=== PATIENT | female | born 1965 | race Caucasian/White ===

== ENCOUNTER 2019-11-01 06:55 | Day surgery (SDC) | payer OTHER ==
[~2019-11-01] VITALS: Ht 165.1 cm; Wt 70.3 kg
[~2019-11-01 06:55] MED LIST: AMITRIPTYLINE H25 MG PO; CITALOPRAM HBR10 MG PO; CLINDAMYCIN HC300 MG PO; DILTIAZEM HCL120 MG PO; DIVALPROEX SOD500 MG PO; ISOSORBIDE MONO30 MG PO; ISOSORBIDE MONO60 MG PO; LEVOTHYROXINE50 MCG PO; LIPITOR10 MG PO; NITROGLYCERIN0.4 MG SL; OXYBUTYNIN CHLOR5 MG PO; POLYSPORIN OI28.3 GM TOP; PREDNISONE20 MG PO; PROVENTIL HFA6.7 GM INH; TRAZODONE HCL50 MG PO; VITAMIN D32000 UNIT PO
--- NOTE | 2019-11-01 10:15 | NUR ---
11/01/19 1015 Marvin Pagan 1002: PT ARRIVED TO PACU. PT DROWSY BUT AWAKE AND SHE STATES SHE IS COMFORTABLE AND QUICKLY FELL TO SLEEP. PT MAINTAINING HER OWN AIRWAY WHILE SLEEPING. SEE ASSESSMENT.
--- NOTE | 2019-11-01 10:18 | NUR ---
IV IN THE RIGHT WRIST, NOT THE FOOT LISTED.
--- NOTE | 2019-11-01 13:36 | OR ---
[facility] [address] [place], [place] [address] Signed DATE OF OPERATION: 11/01/2019 SURGEON: Esthela De La Fuente MD PREOPERATIVE DIAGNOSIS: Right parietal scalp cyst x2. POSTOPERATIVE DIAGNOSIS: Right parietal scalp cyst x2. PROCEDURE PERFORMED: Excision of right parietal scalp cyst x2. ESTIMATED BLOOD LOSS: Minimal. INDICATIONS: Tariq is a 54-year-old female who has actually had several cysts on her scalp over the years. We took two scalp cyst off back in 2017. While living in [place], she doctor tried to remove the cyst off her scalp while in the office. She said it was a horrible experience. It bled everywhere and of course the cyst recurred. We had to remove that cyst and another one as well. She understands that if the entire cyst wall is not removed, they do recur. The scalp was very well vascularized in the often bleeds and makes it difficult to see the cyst wall and therefore we like to do these in the operating room with needle-tip cautery and excellent lighting and help from our OR nurse to ensure when the entire cyst is removed. She did quite well with monitored anesthesia care and local anesthetic previously. 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 She understands that they can recur in the same or other locations. There is a risk to the surgery including, but not limited to bleeding, infection, scarring, change in contour of the skin. She had expressed understanding and wished to proceed. PROCEDURE NOTE: I met with Tariq, her and her [id number] on her day surgery area. After reviewing this with them, we took Tariq into our operating room placed in a supine position with appropriate padding and monitoring. She was given monitored anesthesia care by our nurse blender laborer. She was given preoperative antibiotics along with subcutaneous heparin. SCDs were utilized. Tariq and I have easily identified both lesions. They have been marked in our preop area. We were able to pull her hair off to the sides and just used our scissors to clip a few hairs directly over each of the cyst. Each area was prepped and draped in the usual sterile fashion. Local anesthetic was Electronically Signed By: ESTHELA DE LA FUENTE MD 11/01/19 1336 PATIENT NAME: TARIQ LOMELI OPERATIVE REPORT DATE OF : 69 REPORT #: [id number] PHYSICIAN: ESTHELA DE LA FUENTE MD PCP: CLARK ELIZALDE REPORT IS CONFIDENTIAL AND NOT TO BE RELEASED WITHOUT AUTHORIZATION [facility] [address] [place] [id number] Signed injected around and underneath each lesion. A linear incision was made over each cyst with the help of the needle-tip cautery. The entire cyst and cyst wall were extracted with the help of hemostats. Each incision was closed with two interrupted 4-0 nylon sutures. The incisions were left open to air. After this, Tariq was transferred to her hospital bed and taken into recovery room in stable condition. Esthela De La Fuente MD ALB/MODL /[id number] cc: MD Robbie Oropeza MD Chloe K Norris, PA-C Copies: ESTHELA DE LA FUENTE MD, MERSHED MD NORRIS, CHLOE K PA-C ~ Electronically Signed By: ESTHELA DE LA FUENTE MD 11/01/19 1336 PATIENT NAME: TARIQ LOMELI OPERATIVE REPORT DATE OF : 69 REPORT #: [id number] PHYSICIAN: ESTHELA DE LA FUENTE MD PCP: CLARK ELIZALDE REPORT IS CONFIDENTIAL AND NOT TO BE RELEASED WITHOUT AUTHORIZATION
--- NOTE | 2019-11-05 12:08 | PATH ---
[facility] [address] [place], [place] [address] Signed SPECIMEN(S): A RIGHT SCALP SPECIMEN SOURCE: A. RIGHT SCALP CLINICAL HISTORY: Right scalp pilar cyst x 2. FINAL PATHOLOGIC DIAGNOSIS: Cysts, right scalp, excision: - Pilar (trichilemmal) cysts. NAL:caw:C2NR MICROSCOPIC EXAMINATION: Histologic sections of all submitted blocks are examined by light microscopy. These findings, together with the gross examination, support the pathologic diagnosis. GROSS DESCRIPTION: The specimen, labeled "JM, scalp cyst 2 on the requisition," is received in formalin and consists of two firm marti-white cysts that measure 0.5 x 0.4 x 0.3 cm and 0.9 x 0.8 x 0.7 cm. The contents are firm marti-white. The smaller pieces bisected and the larger piece is trisected. The specimen is entirely submitted in cassette A1. SS (under the direct supervision of a pathologist) The Gross Description was prepared using a voice recognition system. The report was reviewed for accuracy; however, sound-alike word errors, addition and/or deletions may occur. If there is any question about this report, please contact Client Services. PERFORMING LABORATORY: The technical component was performed by [facility], [address] [place] [id number] (Tassel Maker: Kendra Noonan MD; CLIA# [id number]). [facility], [address] [address] (Tassel Maker: Yuriy Richards MD; CLIA# [id number]). Diagnostician: Pita Boston MD Pathologist Electronically Signed 11/05/2019 PATIENT NAME: TARIQ LOMELI PATHOLOGY DATE OF : 69 REPORT #: [id number] PHYSICIAN: [facility] PCP: CLARK ELIZALDE REPORT IS CONFIDENTIAL AND NOT TO BE RELEASED WITHOUT AUTHORIZATION [address] [address] Signed Copies: ~ PATIENT NAME: TARIQ LOMELI PATHOLOGY DATE OF : 69 REPORT #: [id number] PHYSICIAN: [facility]Y PATHOLOG[facility] PCP: CLARK ELIZALDE REPORT IS CONFIDENTIAL AND NOT TO BE RELEASED WITHOUT AUTHORIZATION
== END 2019-11-01 11:05 | disposition home or self-care (01) ==
LOC: DS 06:55
PROVIDERS: Colon & Rectal Surgery
PROC: 0HB0XZZ Excision of Scalp Skin, External Approach (ICD-10-PCS; principal; 2019-11-01 08:15)
DX: L72.11 Pilar cyst (principal); G47.00 Insomnia, unspecified; E03.9 Hypothyroidism, unspecified; I25.2 Old myocardial infarction; F32.9 Major depressive disorder, single episode, unspecified; F41.9 Anxiety disorder, unspecified; I10 Essential (primary) hypertension; Z88.0 Allergy status to penicillin; Z91.041 Radiographic dye allergy status; Z91.013 Allergy to seafood; Z88.8 Allergy status to other drugs, medicaments and biological substances; Z98.890 Other specified postprocedural states
CPT/HCPCS: 00300; J0690; J1100; J1644; J1885; J2405; J2704; J3010; J7121

== ENCOUNTER 2022-07-15 07:40 | Day surgery (SDC) | payer OTHER ==
[~2022-07-15] VITALS: Ht 165.1 cm; Wt 65.9 kg
[~2022-07-15 07:40] MED LIST changes: +NITROMIST4.1 GM; +VENTOLIN HFA18 GM INH
--- NOTE | 2022-07-15 09:48 | NUR ---
PT ALERT, ORIENTED AND SUPPORTED BY HER SONI AND MOTHER IN [place]. SONI INFORMED ME THAT HE HAD HIS MOTHER COME BECAUSE HE..."JUST CAN'T DO HOSPITALS AND IT'S BETTER IF FHE LEAVE". GAVE ENCOURAGEMENT, WILL FOLLOW
--- NOTE | 2022-07-15 10:33 | NUR ---
07/15/22 1033 Jennifer Diego 1031 PATIENT ARRIVES TO PACU AWAKE OFF/ON BUT VERY DROWSY. RESP EVEN AND UNLABORED, OXYGEN MASK AT 6 LITERS, TURNED OFF ON ARRIVAL. PATIENT DENIES PAIN OR NAUSEA.
--- NOTE | 2022-07-15 13:20 | OR ---
[facility] [address] [place], [place] [address] Signed DATE OF OPERATION: 07/15/2022 SURGEON: Esthela De La Fuente MD PREOPERATIVE DIAGNOSIS: Right anterior parietal scalp pilar cyst (5-7 mm). POSTOPERATIVE DIAGNOSIS: Right anterior parietal scalp pilar cyst (4 mm) PROCEDURE: Excision of pilar cyst. ESTIMATED BLOOD LOSS: None. FINDINGS: Tariq indeed had scar from a prior I and D site on the medial side of this cyst. The actual cyst and cyst wall were about 4 mm in diameter. INDICATIONS: Tariq is a 57-year-old female who has come to us previously for pilar cyst on her scalp. Over the years, she has had various providers try to help her. 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 Of course, the scarring makes it much more difficult. She is describing what she felt was a new pilar cyst in the right anterior parietal scalp. It was probably 5 or 7 mm in diameter on palpation. Today we discovered she has a surgical scar in the medial side of that. We even had difficulty placing our hypodermic needle through that area to inject the local anesthetic. It made it much more difficult to remove. In addition, she came through rather severe COVID back in 2020. She has been to both her vamp wetter and her photo checker and assembler. Overall, she is much improved. Her primary care provider had asked her to come see me with respect to the above. In the office, she and I could easily locate this pilar cyst. Once again, we do these in the operating room under excellent lighting with suction and needle tip cautery, particularly when they have had scarring previously. These are day surgeries. There is risk including, but not limited to bleeding, infection, scarring, change in contour of the skin as well as recurrent pilar cyst in the same or other locations. She had expressed understanding and wished to proceed. DESCRIPTION OF PROCEDURE: Electronically Signed By: ESTHELA DE LA FUENTE MD 07/15/22 1320 PATIENT NAME: TARIQ LOMELI OPERATIVE REPORT DATE OF : 69 REPORT #: [id number] PHYSICIAN: ESTHELA DE LA FUENTE MD PCP: MANOLO TARANGO PA-C REPORT IS CONFIDENTIAL AND NOT TO BE RELEASED WITHOUT AUTHORIZATION [facility] [address] [place] [id number] Signed I met with Tariq and her [id number] in our preop area. We all agreed on the location and marked that appropriately. That was consistent with our history and physical. After this, she was taken to the operating room and placed in the supine position under monitored anesthesia care. She was prepped and draped in the usual sterile fashion. Once the hair was trimmed a bit, we could see the scar on the medial side of this pilar cyst. In fact, we had difficulty passing our hypodermic needle through the scar. After injecting local anesthetic, we made an anterior to posterior incision with a 15 blade knife just lateral to the scar. It was very difficult getting down and around the cyst wall. We went very carefully and slowly with our needle-tip cautery and the hemostat. They were so much scarred that we finally opened the top of the cyst wall and evacuated the very indurated 3 mm ball of sebum. That allowed us to work our way lateral to medial towards the scar. Then, she will be having the entire cyst wall removed. The wound had been irrigated until clean. We injected some additional local anesthetic. We then used interrupted simple 2-0 nylon sutures to bring the incision back together. There was no ointment or dressing applied. She was then transferred over to the hospital bed and taken into the recovery room in stable condition. Tariq had tolerated the procedure quite well. Esthela De La Fuente MD ALB/MODL /[id number] cc: FLORIN Lugo MD Copies: MANOLO TARANGO PA-C, ANDREW L MD ~ Electronically Signed By: ESTHELA DE LA FUENTE MD 07/15/22 1320 PATIENT NAME: TARIQ LOMELI OPERATIVE REPORT DATE OF : 69 REPORT #: [id number] PHYSICIAN: ESTHELA DE LA FUENTE MD PCP: MANOLO TARANGO PA-C REPORT IS CONFIDENTIAL AND NOT TO BE RELEASED WITHOUT AUTHORIZATION
== END 2022-07-15 11:20 | disposition home or self-care (01) ==
LOC: DS 07:40
PROVIDERS: ATTEND Colon & Rectal Surgery
PROC: 0HB0XZZ Excision of Scalp Skin, External Approach (ICD-10-PCS; principal; 2022-07-15 09:00)
DX: L72.11 Pilar cyst (principal); I10 Essential (primary) hypertension; E03.9 Hypothyroidism, unspecified; E55.9 Vitamin D deficiency, unspecified; I25.10 Atherosclerotic heart disease of native coronary artery without angina pectoris; Z79.899 Other long term (current) drug therapy
CPT/HCPCS: 00300; J0690; J1644; J1885; J2001; J2405; J2704; J3010; J7121

== ENCOUNTER 2022-08-09 20:37 | Emergency (ER) | payer OTHER ==
[~2022-08-09] VITALS: Ht 165.1 cm; Wt 65.8 kg
[2022-08-09] MEDS ORDERED: ULTRAM50 MG PO (21:24)
== END 2022-08-09 22:06 | disposition home or self-care (01) ==
LOC: ED 20:37
DX: S83.92XA Sprain of unspecified site of left knee, initial encounter (principal); I10 Essential (primary) hypertension; W22.8XXA Striking against or struck by other objects, initial encounter; Z91.013 Allergy to seafood; Z91.018 Allergy to other foods; Z88.0 Allergy status to penicillin; Z88.8 Allergy status to other drugs, medicaments and biological substances; Z88.2 Allergy status to sulfonamides; Z79.899 Other long term (current) drug therapy; Z79.890 Hormone replacement therapy
CPT/HCPCS: 73560; A9270; J1885

== ENCOUNTER 2024-09-21 16:39 | Emergency (ER) | payer OTHER, BC ==
[~2024-09-21] VITALS: Ht 165.1 cm; Wt 78.0 kg
[~2024-09-21 16:39] MED LIST changes: +ULTRAM50 MG PO
[2024-09-21] MEDS ORDERED: ondansetron HCL 4 MG/2 ML VIAL IV ONE ×2 (17:00→17:15)
[2024-09-21 17:08] LABS: BASOPHILS 0.9 % (0-2); EOSINOPHILS 1.2 % (0-6); HEMATOCRIT 40.2 % (35.0-50.0); HEMOGLOBIN 13.8 g/dL (12.0-18.0); LYMPHOCYTES 15.6 % (24-44); MCH 30.7 (27-36); MCHC 34.4 g/dl (30-36); MCV 89.4 fl (81-99); MONOCYTES 11.7 % (0-12); NEUTROPHILS 70.6 % (39-80); PLATELET COUNT 163 K/uL (140-440); RDW 13.7 (10.5-15.0)
[2024-09-21] MEDS ORDERED: HYDROmorphone HCL 1 MG/ML SYR IV ONE (17:15)
[2024-09-21] MEDS ORDERED: SODIUM CHLORIDE 0.9% 1,000 ML IV PRN (17:15)
[2024-09-21 17:21] LABS: ALBUMIN 3.8 g/dL (3.4-5.0); ALBUMIN/GLOBULIN RATIO 1.06 (1.1-2.4); ANION GAP 14.6 (7-21); BILIRUBIN, TOTAL 0.4 ng/dL (0.2-1.0); BUN/CREATININE RATIO 10.77 (6.0-28.6); CALCIUM 8.7 mg/dL (8.5-10.1); CREATININE, SERUM 1.67 mg/dL (0.55-1.02); POTASSIUM 3.6 mmol/L (3.5-5.1); PROTEIN, TOTAL 7.4 g/dL (6.4-8.2)
[2024-09-21 17:31] LABS: BILIRUBIN, URINE NEGATIVE (negative); BLOOD/HGB, URINE SMALL (Negative); KETONE, URINE NEGATIVE (Negative); LEUK ESTERASE, URINE NEGATIVE (negative); NITRITE, URINE NEGATIVE (negative)
[2024-09-21 17:37] LABS: EPITHELIAL CELLS, URINE SQUAMOUS 1+ /lpf (0-1+)
[2024-09-21 17:38] LABS: RED BLOOD CELLS, URINE 21-40 /hpf (0-5)
[2024-09-21 17:39] LABS: BACTERIA, URINE RARE /hpf (negative); CASTS, URINE NONE SEEN \\lpf; COLLECTION TYPE, URINE CLEAN CATCH; CRYSTALS, URINE NONE SEEN (0-1+)
[2024-09-21 17:40] LABS: REFLEX CULTURE, URINE Yes (No)
[2024-09-21] MEDS ORDERED: OXYCODONE/APAP 5/325 TAB PO ONE (19:45)
[2024-09-21] MEDS ORDERED: KETOROLAC TROMETHAMINE 15 MG/ML VIAL IV ONE (19:45)
[2024-09-21] MEDS ORDERED: PERCOCET 5-3251 EACH PO (20:13)
[2024-09-21] MEDS ORDERED: OXYCODONE/ACETAMINOPHEN 1 TAB HOME.PACK PO ONE (20:15)
[2024-09-21 20:34] VITALS: BP 139/77
[2024-09-25] MEDS ORDERED: BACTRIM DS TAB1 EACH PO (17:52)
[2024-09-25] MEDS ORDERED: FLOMAX0.4 MG PO (17:52)
[2024-09-25] MEDS ORDERED: PREDNISONE20 MG PO (17:53)
[2024-09-26] MEDS ORDERED: LEVOFLOXACIN500 MG PO (12:31)
== END 2024-09-21 20:34 | disposition home or self-care (01) ==
LOC: ED 16:39
PROVIDERS: Emergency Medicine
DX: N13.2 Hydronephrosis with renal and ureteral calculous obstruction (principal); K80.20 Calculus of gallbladder without cholecystitis without obstruction; K59.00 Constipation, unspecified; I25.2 Old myocardial infarction; I10 Essential (primary) hypertension; Z91.013 Allergy to seafood; Z88.2 Allergy status to sulfonamides; Z88.8 Allergy status to other drugs, medicaments and biological substances; Z91.018 Allergy to other foods; Z79.899 Other long term (current) drug therapy; Z79.890 Hormone replacement therapy
CPT/HCPCS: 36415; 74176; 80053; 81001; 83690; 85025; 87088; 96374; 96375; 99284-25; J1171; J1885; J2405; J7030

== ENCOUNTER 2024-10-02 06:02 | Day surgery (SDC) | payer OTHER, BC ==
[~2024-10-02] VITALS: Ht 165.1 cm; Wt 75.0 kg
[~2024-10-02 06:02] MED LIST changes: +BACTRIM DS TAB1 EACH PO; +FLOMAX0.4 MG PO; +LACTATED RINGER'S 1,000 ML IV SCH; +LEVOFLOXACIN500 MG PO; +PERCOCET 5-3251 EACH PO
[2024-10-02 06:12] VITALS: BP 126/64
[2024-10-02] MEDS ORDERED: iopamidoL 30 ML VIAL ONE (06:39)
[2024-10-02] MEDS ORDERED: LIDOCAINE HCL 1% 5 ML SDV INJ ONE (07:00)
[2024-10-02] MEDS ORDERED: CEFAZOLIN SODIUM 2 GM/20 ML SYR IV SCH (07:00)
[2024-10-02] MEDS ORDERED: IBLOOD GLUCOSE TEST STRIP 1 EA TEST VI PRN ×2 (07:00→08:30)
[2024-10-02] MEDS ORDERED: fentaNYL citrate 100 MCG/2 ML VIAL ONE (07:21)
[2024-10-02] MEDS ORDERED: propofoL 200 MG/20 ML VIAL ONE (07:25)
[2024-10-02] MEDS ORDERED: ACETAMINOPHEN 1,000 MG/100 ML VIAL ONE (07:25)
[2024-10-02] MEDS ORDERED: LIDOCAINE HCL 2% 5 ML SDV ONE (07:25)
[2024-10-02] MEDS ORDERED: ondansetron HCL 4 MG/2 ML VIAL ONE (07:25)
[2024-10-02] MEDS ORDERED: DEXAMETHASONE SOD PHOS 4 MG/ML VIAL ONE (07:25)
[2024-10-02] MEDS ORDERED: dexmedeTOMIDine HCl 200 MCG/2 ML VIAL ONE (07:25)
[2024-10-02] MEDS ORDERED: MAGNESIUM SULFATE 1 GM/2 ML VIAL ONE (07:25)
[2024-10-02] MEDS ORDERED: OXYCODONE/APAP 5/325 TAB PO PRN (07:30)
[2024-10-02] MEDS ORDERED: KETOROLAC TROMETHAMINE 15 MG/ML VIAL IV PRN (07:30)
[2024-10-02] MEDS ORDERED: HYDROmorphone HCL 1 MG/ML SYR IV PRN (07:30)
[2024-10-02] MEDS ORDERED: ondansetron HCL 4 MG/2 ML VIAL IV PRN ×2 (07:30→08:30)
[2024-10-02] MEDS ORDERED: PHENAZOPYRIDINE HCL 100 MG TAB PO PRN (07:45)
[2024-10-02] MEDS ORDERED: GLYCOPYRROLATE 1 MG/5 ML MDV ONE (07:55)
[2024-10-02] MEDS ORDERED: ePHEDrine sulfate 50 MG/ML AMP ONE (07:55)
[2024-10-02] MEDS ORDERED: fentaNYL citrate 50 MCG/ML SDV IV PRN (08:30)
[2024-10-02] MEDS ORDERED: NALOXONE HCL 0.4 MG SYR IV PRN (08:30)
[2024-10-02] MEDS ORDERED: KETOROLAC TROMETHAMINE 30 MG/ML VIAL IV PRN (08:30)
[2024-10-02] MEDS ORDERED: TRANEXAMIC ACID 1,000 MG/10 ML AMP ONE ×2 (08:59→09:00)
--- NOTE | 2024-10-02 09:30 | NUR ---
10/02/24 0930 Aarti Dick 0912- PT ARRIVES TO THE PACU WITH A NATURAL AIRWAY. PT IS TALKING AND LOOKING AROUND THE PACU. PT IS ORIENTED TO THE PACU. PT DENIES PAIN AND NAUSEA. NO DRAINAGE NOTED AT THE URETHRA AND ELVIA PAD PUT IN PLACE. IV INFUSING IN THE LEFT FOREARM. ABDOMEN IS SOFT AND NONDISTENDED. ALL MONITORS PUT IN PLACE AND VSS. 0923- MD AT BEDSIDE TALKING WITH PT. ALL QUESTIONS ANSWERED AND NO CONCERNS. 0928- PT HOB INCREASED AND PT SIPPING ON WATER AND TOLERATING WELL. PT REPORTS HER THROAT FEELS "RAW", AND NEEDING TO URINATE. PT EDUCATED ON PROCEDURE.
[2024-10-02 09:46] VITALS: BP 113/75
--- NOTE | 2024-10-02 09:47 | NUR ---
LE 0945: PT IS BACK TO DS FROM PACU. SHE IS AT HER BASELINE. IS AT THE BEDSIDE. CALL LIGHT WITHIN REACH. WATER, PUDDING, AND CRACKERSON BEDSIDE TABLE. SHE IS TOLERATING WATER. NO ADDITIONAL NEEDS AT THIS TIME. DC CRITERIA REVIEWED WITH PT AND .
[2024-10-02] MEDS ORDERED: SEVOFLURANE 250 ML BTL INH ONE (10:02)
[2024-10-02 10:54] VITALS: BP 113/64
--- NOTE | 2024-10-02 10:54 | NUR ---
PT VOIDED 600 ML OF URINE.
--- NOTE | 2024-10-02 11:00 | NUR ---
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 SRT ASSISTS HER TO THE BATHROOM. LE 1055: PT HAS MET ROSIE MERAZ. SHE INDICATES THAT SHE WOULD LIKE TO GO HOME AT THIS TIME. SHE IS EDUCATED ON HOW TO DRESS HERSELF AND TO OPEN HER CURTAIN WHEN SHE IS READY.
--- NOTE | 2024-10-02 11:14 | NUR ---
LE 1109: PT IS GIVEN WRITTEN AND VERBAL DC INSTRUCTIONS. SHE VERBALIZES UNDERSTANDING. QUESTIONS ARE ASKED AND ANSWERED. LE 1110: PT IS TAKEN TO PERSONAL VEHICLE VIA WC.
[2024-10-04 15:55] LABS: CALCULI MASS 270 mg (())
== END 2024-10-02 11:14 | disposition home or self-care (01) ==
LOC: DS 06:02
PROVIDERS: ATTEND Urology
PROC: 0TC68ZZ Extirpation of Matter from Right Ureter, Via Natural or Artificial Opening Endoscopic (ICD-10-PCS; principal; 2024-10-02 07:30)
PROC: 0T768DZ Dilation of Right Ureter with Intraluminal Device, Via Natural or Artificial Opening Endoscopic (ICD-10-PCS; 2024-10-02 07:30)
DX: N20.1 Calculus of ureter (principal); I10 Essential (primary) hypertension; I25.10 Atherosclerotic heart disease of native coronary artery without angina pectoris; I25.2 Old myocardial infarction; E03.9 Hypothyroidism, unspecified; N32.81 Overactive bladder; Z79.890 Hormone replacement therapy; Z79.899 Other long term (current) drug therapy; Z88.0 Allergy status to penicillin; Z88.2 Allergy status to sulfonamides; Z88.8 Allergy status to other drugs, medicaments and biological substances; Z91.013 Allergy to seafood; Z91.018 Allergy to other foods; Z89.021 Acquired absence of right finger(s)
CPT/HCPCS: 00910; 74420; 82365; C1769; C2617; J0131; J0690; J1100; J2003; J2405; J2704; J3010; J3475; J7121; Q9967

== ENCOUNTER 2025-03-03 07:55 | Day surgery (SDC) | payer BC, OTHER ==
[2025-02-27 16:08] VITALS: BP 162/70
[~2025-03-03] VITALS: Ht 165.1 cm; Wt 67.3 kg
[~2025-03-03 07:55] MED LIST changes: +ATORVASTATIN CA20 MG PO; +CEFAZOLIN SODIUM 2 GM/20 ML SYR IV SCH; +CELEXA10 MG PO; +DILTIAZEM 24HR120 MG PO; +HYDROXYZINE HCL25 MG PO; +IBLOOD GLUCOSE TEST STRIP 1 EA TEST VI PRN; +LIDOCAINE HCL 1% 30 ML SDV ONE; +LIDOCAINE HCL 1% 5 ML SDV INJ ONE; +SOLIFENACIN SUC10 MG PO; +VESICARE10 MG PO; +VITAMIN D21250 MCG PO
[2025-03-03 08:04] VITALS: BP 131/78
[2025-03-03] MEDS ORDERED: OXYCODONE/APAP 5/325 TAB PO PRN (08:15)
[2025-03-03] MEDS ORDERED: MORPHINE SULFATE 4 MG/ML VIAL IV PRN (08:15)
[2025-03-03] MEDS ORDERED: ondansetron HCL 4 MG/2 ML VIAL IV PRN ×2 (08:15→11:30)
[2025-03-03] MEDS ORDERED: propofoL 200 MG/20 ML VIAL ONE (10:50)
[2025-03-03] MEDS ORDERED: LIDOCAINE HCL 2% 5 ML SDV ONE (10:50)
[2025-03-03] MEDS ORDERED: KETOROLAC TROMETHAMINE 30 MG/ML VIAL ONE (10:50)
[2025-03-03] MEDS ORDERED: NALOXONE HCL 0.4 MG SYR IV PRN (11:30)
[2025-03-03] MEDS ORDERED: fentaNYL citrate 50 MCG/ML SDV IV PRN (11:30)
--- NOTE | 2025-03-03 11:48 | NUR ---
03/03/25 1148 Alison Zambrano PATIENT OPENS HER EYES, SPONTANEOUSLY. SHE DENIES PAIN. GLASSES ARE GIVEN AND SHE REPLACES THEM ONTO HER PERSON. SHE FOLLOWS INSTRUCTIONS TO LIFT HER HEAD OFF HER PILLOW. OXGYEN REMAINS 100% ON 6L VIA MASK. OXYGEN AND SURGICAL BONNET ARE REMOVED.
[2025-03-03 12:00] VITALS: BP 102/60
== END 2025-03-03 12:17 | disposition home or self-care (01) ==
LOC: DS 07:55
PROVIDERS: ATTEND Urology
PROC: 3E0K8GC Introduction of Other Therapeutic Substance into Genitourinary Tract, Via Natural or Artificial Opening Endoscopic (ICD-10-PCS; principal; 2025-03-03 10:00)
DX: N36.42 Intrinsic sphincter deficiency (ISD) (principal); N39.3 Stress incontinence (female) (male); I10 Essential (primary) hypertension; E03.9 Hypothyroidism, unspecified; Z79.899 Other long term (current) drug therapy; Z88.0 Allergy status to penicillin; Z88.2 Allergy status to sulfonamides; Z88.5 Allergy status to narcotic agent; Z88.8 Allergy status to other drugs, medicaments and biological substances; Z91.013 Allergy to seafood
CPT/HCPCS: 00910; J0690; J1885; J2003; J2704; J7121; L8606